=== PATIENT | female | born 1930 | race Caucasian/White ===

== ENCOUNTER 2016-08-17 13:30 | Inpatient (IN) | payer MEDICARE, OTHER ==
[2016-08-17 14:26] VITALS: BMI 22.2
[2016-08-17] MEDS ORDERED: HYDROcodone/Acetaminophen 5/325 mg Tablet PO PRN (17:34)
[2016-08-17] MEDS: Sulfameth/Trimethoprim DS 800-160mg TAB PO SCH (21:10)
[2016-08-18] MEDS: HYDROcodone/Acetaminophen 5/325 mg Tablet PO PRN (01:24)
[2016-08-18] MEDS: Levothyroxine Sodium 50 MCG TAB PO SCH (05:40)
[2016-08-18] MEDS: Enoxaparin Sodium 30 MG/0.3 ML SYRINGE SC SCH (05:41)
[2016-08-18] MEDS: Hydrochlorothiazide 25 MG TAB PO SCH (08:35)
[2016-08-18] MEDS: Calcium Carbonate + Vit D 1 TAB PO SCH ×2 (08:35→17:33)
[2016-08-18] MEDS: Valsartan 80 MG TAB PO SCH (08:35)
[2016-08-18] MEDS: Sulfameth/Trimethoprim DS 800-160mg TAB PO SCH ×2 (08:36→20:36)
[2016-08-18] MEDS: traMADol HCl 50 MG TAB PO PRN (10:24)
[2016-08-19] MEDS: Levothyroxine Sodium 50 MCG TAB PO SCH (06:01)
[2016-08-19] MEDS: Enoxaparin Sodium 30 MG/0.3 ML SYRINGE SC SCH (06:02)
[2016-08-19] MEDS: Sulfameth/Trimethoprim DS 800-160mg TAB PO SCH ×2 (10:20→20:44)
[2016-08-19] MEDS: Calcium Carbonate + Vit D 1 TAB PO SCH ×2 (10:21→18:53)
[2016-08-19] MEDS: Valsartan 80 MG TAB PO SCH (10:21)
[2016-08-19] MEDS: Hydrochlorothiazide 25 MG TAB PO SCH (10:22)
[2016-08-19] MEDS: traMADol HCl 50 MG TAB PO PRN (20:44)
[2016-08-20] MEDS: HYDROcodone/Acetaminophen 5/325 mg Tablet PO PRN ×2 (01:04→09:57)
[2016-08-20] MEDS: Enoxaparin Sodium 30 MG/0.3 ML SYRINGE SC SCH (05:36)
[2016-08-20] MEDS: Levothyroxine Sodium 50 MCG TAB PO SCH (05:36)
[2016-08-20] MEDS: Sulfameth/Trimethoprim DS 800-160mg TAB PO SCH ×2 (09:44→20:32)
[2016-08-20] MEDS: Calcium Carbonate + Vit D 1 TAB PO SCH ×2 (09:44→17:58)
[2016-08-20] MEDS: Valsartan 80 MG TAB PO SCH (09:47)
[2016-08-20] MEDS: Hydrochlorothiazide 25 MG TAB PO SCH (09:48)
[2016-08-21] MEDS: Enoxaparin Sodium 30 MG/0.3 ML SYRINGE SC SCH (05:19)
[2016-08-21] MEDS: Levothyroxine Sodium 50 MCG TAB PO SCH (05:19)
[2016-08-21] MEDS: Valsartan 80 MG TAB PO SCH (09:36)
[2016-08-21] MEDS: Acetaminophen 325 MG TAB PO PRN ×2 (09:37→21:38)
[2016-08-21] MEDS: Sulfameth/Trimethoprim DS 800-160mg TAB PO SCH ×2 (09:37→21:38)
[2016-08-21] MEDS: Calcium Carbonate + Vit D 1 TAB PO SCH ×2 (09:37→18:13)
[2016-08-21] MEDS: Hydrochlorothiazide 25 MG TAB PO SCH (09:38)
[2016-08-22] MEDS: HYDROcodone/Acetaminophen 5/325 mg Tablet PO PRN (01:59)
[2016-08-22] MEDS: Enoxaparin Sodium 30 MG/0.3 ML SYRINGE SC SCH (06:20)
[2016-08-22] MEDS: Levothyroxine Sodium 50 MCG TAB PO SCH (06:21)
[2016-08-22] MEDS: Acetaminophen 325 MG TAB PO PRN (09:43)
[2016-08-22] MEDS: Calcium Carbonate + Vit D 1 TAB PO SCH ×2 (09:43→17:08)
[2016-08-22] MEDS: Sulfameth/Trimethoprim DS 800-160mg TAB PO SCH (09:43)
[2016-08-22] MEDS: Hydrochlorothiazide 25 MG TAB PO SCH (09:43)
[2016-08-22] MEDS: Valsartan 80 MG TAB PO SCH (09:44)
[2016-08-23] MEDS: HYDROcodone/Acetaminophen 5/325 mg Tablet PO PRN ×2 (01:06→18:05)
[2016-08-23] MEDS: Enoxaparin Sodium 30 MG/0.3 ML SYRINGE SC SCH (05:42)
[2016-08-23] MEDS: Levothyroxine Sodium 50 MCG TAB PO SCH (05:43)
[2016-08-23] MEDS: Valsartan 80 MG TAB PO SCH (08:43)
[2016-08-23] MEDS: Acetaminophen 325 MG TAB PO PRN (08:43)
[2016-08-23] MEDS: Calcium Carbonate + Vit D 1 TAB PO SCH ×2 (08:43→18:05)
[2016-08-23] MEDS: Hydrochlorothiazide 25 MG TAB PO SCH (08:44)
[2016-08-24] MEDS: Enoxaparin Sodium 30 MG/0.3 ML SYRINGE SC SCH (05:22)
[2016-08-24] MEDS: Levothyroxine Sodium 50 MCG TAB PO SCH (05:24)
[2016-08-24 05:25] LABS: Anion Gap 14 mmol/L (10-20); BUN (Urea Nitrogen) 20 mg/dL (9.8-20.1); Calc. Creatinine Clearance 51 mL/min (70-130); Calcium 9.2 mg/dL (7.8-10.44); Carbon Dioxide 27 mmol/L (23-31); Chloride 91 mmol/L (98-107); Estimated GFR-MDRD 68
[2016-08-24] MEDS: traMADol HCl 50 MG TAB PO PRN (09:49)
[2016-08-24] MEDS: Calcium Carbonate + Vit D 1 TAB PO SCH ×2 (09:49→16:52)
[2016-08-24] MEDS: Acetaminophen 325 MG TAB PO PRN ×2 (09:50→14:35)
[2016-08-24] MEDS: Valsartan 80 MG TAB PO SCH (09:50)
[2016-08-24] MEDS: Hydrochlorothiazide 25 MG TAB PO SCH (09:52)
[2016-08-24] MEDS: HYDROcodone/Acetaminophen 5/325 mg Tablet PO PRN (21:35)
[2016-08-25] MEDS: Levothyroxine Sodium 50 MCG TAB PO SCH (05:53)
[2016-08-25] MEDS: Enoxaparin Sodium 30 MG/0.3 ML SYRINGE SC SCH (05:53)
[2016-08-25] MEDS: HYDROcodone/Acetaminophen 5/325 mg Tablet PO PRN (09:20)
[2016-08-25] MEDS: Calcium Carbonate + Vit D 1 TAB PO SCH ×2 (09:23→18:25)
[2016-08-25] MEDS: Valsartan 80 MG TAB PO SCH (09:23)
[2016-08-25] MEDS: Hydrochlorothiazide 25 MG TAB PO SCH (09:23)
[2016-08-25] MEDS: traMADol HCl 50 MG TAB PO PRN (12:48)
[2016-08-25] MEDS ORDERED: Milk Of Magnesia 30 ML UDCUP PO PRN (14:29)
[2016-08-26] MEDS: Levothyroxine Sodium 50 MCG TAB PO SCH (05:40)
[2016-08-26] MEDS: Enoxaparin Sodium 30 MG/0.3 ML SYRINGE SC SCH (05:40)
[2016-08-26 06:33] VITALS: BP 118/60; TEMP 97.5
[2016-08-26] MEDS: Calcium Carbonate + Vit D 1 TAB PO SCH (08:44)
[2016-08-26] MEDS: Valsartan 80 MG TAB PO SCH (08:45)
[2016-08-26] MEDS: Hydrochlorothiazide 25 MG TAB PO SCH (08:45)
[2016-08-26] MEDS: HYDROcodone/Acetaminophen 5/325 mg Tablet PO PRN (09:35)
--- NOTE | 2016-08-26 22:06 | DIS ---
DATE OF ADMISSION: 08/14/2016 DATE OF DISCHARGE: 08/26/2016 ADMISSION DIAGNOSES: Pelvic fracture status post fall, hyponatremia, hypokalemia, and leukocytosis. DISCHARGE DIAGNOSES: Include pelvic fracture, status post fall, urinary tract infection treated, electrolyte abnormalities treated, dementia, hypertension, hypothyroidism, and anxiety. PROCEDURES: None. Status post admission. HOSPITAL COURSE: An 86-year-old female sustained a pelvic fracture, status post fall at home. She was admitted secondary to her inability to ambulate. She normally lives alone with family member next door. Upon admission, she was found to have electrolyte abnormalities along with leukocytosis which revealed a UTI, which was effectively treated; electrolyte abnormalities were also treated. She gradually improved with physical therapy/occupational therapy and has met the goals sufficiently to be able to go home with continued PT, OT via [email or web address]. Due to her advanced tage and underlying dementia, discussion was had with the family for the need to have a live in family member ; the patient is planning to go home for a 2 week trial period while living with family member(son), and after that time they will decide upon whether she is a candidate for penitentiary placement versus continued home care. DISPOSITION: The patient will return home where she will have live-in family member, notably her son, and also have [email or web address] for continued PT, OT. She can follow up in clinic with myself in 1 week. DISCONTINUED MEDICATIONS: Include Diovan/HCTZ 160/25 mg p.o. daily, Cymbalta 30 mg p.o. daily, amlodipine 10 mg p.o. daily, aspirin 81 mg p.o. daily, calcium /vitamin D 1200/800 p.o. b.i.d., tramadol 50 mg p.o. q.6 hours p.r.n., levothyroxine 50 mcg p.o. daily, and Nexium 40 mg p.o. daily. MTDD
== END 2016-08-26 17:00 | disposition home health service (06) | DRG 560 ==
LOC: BURMED 13:30
PROVIDERS: ADMIT Family Medicine; ATTEND Family Medicine
DX: S32.9XXD Fracture of unspecified parts of lumbosacral spine and pelvis, subsequent encounter for fracture with routine healing (principal); N39.0 Urinary tract infection, site not specified; E87.1 Hypo-osmolality and hyponatremia; F03.90 Unspecified dementia, unspecified severity, without behavioral disturbance, psychotic disturbance, mood disturbance, and anxiety; W01.0XXD Fall on same level from slipping, tripping and stumbling without subsequent striking against object, subsequent encounter; I10 Essential (primary) hypertension; E03.9 Hypothyroidism, unspecified; E87.6 Hypokalemia; F41.9 Anxiety disorder, unspecified; K21.9 Gastro-esophageal reflux disease without esophagitis; G62.9 Polyneuropathy, unspecified
CPT/HCPCS: 36415; 80048; G8978-GP-CK; G8979-GP-CI; G8987-GO-CL; G8988-GO-CI; J1650

== ENCOUNTER 2017-04-06 00:02 | Outpatient (CLI) | payer MEDICARE, OTHER ==
[2017-04-06 07:52] LABS: #Basophils 0.1 thou/uL (0.0-0.2); #Eosinphils 0.1 thou/uL (0.0-0.7); #Lymphocytes 1.4 thou/uL (1.20-3.40); #Monocytes 0.5 thou/uL (0.11-0.59); #Neutrophils 2.4 thou/uL (1.40-6.50); %Basophils 1.3 % (0.0-1.0); %Eosinophils 2.4 % (0.0-10.0); %Lymphocytes 31.8 % (21.0-51.0); %Monocytes 10.2 % (0.0-10.0); %Neutrophils 54.4 % (42.0-75.0); Hemoglobin 13.9 g/dL (12.0-16.0); Mean Corpuscular Hemoglobin 31.5 pg (27.0-31.0); Mean Platelet Volume 6.5 fL (7.4-10.4); Platelet Count 176 thou/uL (130-400); RBC Distribution Width 12.1 % (11.5-14.5); Red Blood Cell (RBC) Count 4.42 mill/uL (4.20-5.40); White Blood Cell (WBC) Count 4.4 thou/uL (4.8-10.8)
[2017-04-06 08:00] LABS: ALT (SGPT) 14 U/L (8-55); AST (SGOT) 20 U/L (5-34); Albumin 3.9 g/dL (3.4-4.8); Alkaline Phosphatase 89 U/L (40-150); Anion Gap 14 mmol/L (10-20); BUN (Urea Nitrogen) 18 mg/dL (9.8-20.1); Bilirubin, Total 0.7 mg/dL (0.2-1.2); Calc. Creatinine Clearance 0 mL/min (70-130); Carbon Dioxide 28 mmol/L (23-31); Cardiac Risk 2.9 (Less than 4.5); Chloride 103 mmol/L (98-107); Cholesterol 164 mg/dl (< 200 Desired); Estimated GFR-MDRD 66; Globulin 2.4 g/dL (2.4-3.5); Glucose 85 mg/dL (83-110); HDL Cholesterol 56 mg/dL (>60 Neg Risk); LDL Cholesterol, Calculated 94 mg/dL; Potassium 4.3 mmol/L (3.5-5.1); Protein, Total 6.3 g/dL (6.0-8.3); Sodium 141 mmol/L (136-145); Triglycerides 69 mg/dL (Less than 150)
== END 2017-04-06 00:03 | disposition home or self-care (01) ==
LOC: BURMANOR 00:02
PROVIDERS: ATTEND Clinical Nurse Specialist Medical-Surgical
DX: E03.9 Hypothyroidism, unspecified (principal)
CPT/HCPCS: 36415; 80053; 80061; 84443; 85025